=== PATIENT | female | born 1985 | race African-American/Black ===

== ENCOUNTER 2023-10-05 10:59 | Emergency (ER) | payer SELFPAY ==
[2023-10-05 11:07] VITALS: BP 116/76; PULSE 110; RESP 20; TEMP 36.7; O2SAT 100
[2023-10-05 13:23] LABS: Strep Group A RT-PCR DETECTED (Negative)
--- NOTE | 2023-10-05 13:47 | ED.GENADULT ---
HPI - General Adult General Chief complaint: Upper Respiratory Infection Stated complaint: sore throat Time Seen by Provider: 10/05/23 12:54 History of Present Illness HPI narrative: 37-year-old female present to the emergency department for evaluation of sore throat that is been ongoing for the last few days. Patient reports he has been having increased difficulty with swallowing. Patient has been taking [id number] medications for pain control. Patient states she has been unable to do the warm salt water gargles. Related Data Allergies Allergy/AdvReac Type Severity Reaction Status Date / Time No Known Allergies Allergy Verified 10/05/23 12:13 Review of Systems Review of Systems: All systems reviewed & are unremarkable except as noted in HPI and below Exam Narrative: APPEARANCE: Well appearing, no pain, no distress, well-nourished. HEAD: normocephalic, atraumatic. EYES: PERRLA/EOMI, conjunctivae clear. NOSE: Normal no drainage EARS:TMS clear with good light reflex. THROAT: Enlarged tonsils with exudate, tonsils without touching, no uvular deviation and no posterior pharynx swelling NECK: Supple. No adenopathy, no masses. RESPIRATORY: Airway patent, respirations nonlabored. Clear to auscultation bilaterally, no rales, rhonchi, wheezing. CARDIOVASCULAR: Regular rate and rhythm without murmurs rubs or gallops. ABDOMINAL: Soft, nontender, nondistended, normal bowel sounds MUSCULOSKELETAL: Moves all extremities. Strength/ROM intact, No edema, No calf tenderness. NEURO: Alert. Cranial nerves II through XII intact. grossly intact Course Course Emergency Course: Vital Signs Vital signs: Vital Signs Temperature 98.0 F 10/05/23 11:07 Pulse Rate 110 H 10/05/23 11:07 Respiratory Rate 10/05/23 11:07 Blood Pressure 116/76 10/05/23 11:07 Pulse Oximetry 100 10/05/23 11:07 Oxygen Delivery Room Air 10/05/23 11:07 Temperature 98.0 F 10/05/23 11:07 Pulse Rate 110 H 10/05/23 11:07 Respiratory Rate 20 10/05/23 11:07 Blood Pressure 116/76 10/05/23 11:07 Pulse Oximetry 100 10/05/23 11:07 Oxygen Delivery Room Air 10/05/23 11:07 Medical Decision Making [facility] Narrative Medical decision making narrative: 29-year-old female present to the emergency department for evaluation for sore throat. Patient did test positive for group a strep and was started on Augmentin the emergency department. Due to patient's extensive swelling she was also treated with a single dose of IM dexamethasone. Patient was encouraged to have close follow-up with her primary care physician. Differential Diagnosis Differential Diagnosis: peritonsillar abscess, posterior pharyngeal abscess, strep throat, viral etiology Vital Signs Vital Signs: Vital Signs Temperature 98.0 F 10/05/23 11:07 Pulse Rate 110 H 10/05/23 11:07 Respiratory Rate 20 10/05/23 11:07 Blood Pressure 116/76 10/05/23 11:07 Pulse Oximetry 100 10/05/23 11:07 Oxygen Delivery Room Air 10/05/23 11:07 Temperature 98.0 F 10/05/23 11:07 Pulse Rate 110 H 10/05/23 11:07 Respiratory Rate 20 10/05/23 11:07 Blood Pressure 116/76 10/05/23 11:07 Pulse Oximetry 100 10/05/23 11:07 Oxygen Delivery Room Air 10/05/23 11:07 Lab Data Lab results reviewed: Yes I reviewed the patient's lab results. Labs: Lab Results 10/05/23 Range/Units 12:45 Group A Strep (PCR) Detected A (Negative) Discharge Plan Discharge Clinical Impression: Strep throat Patient Disposition: Home, Self-Care Condition: Stable Instructions: Antibiotic Form, Strep Throat (ED) Additional Instructions: Tylenol and ibuprofen for symptom control. Antibiotic as directed until completed. Follow self diet. Avoid alcohol. Have close follow-up with your primary care physician. Prescriptions: New amoxicillin-pot clavulanate 875-125 mg tablet 1 tablet PO Q12H 7 Days Qty: 14 0RF Follow-up/Ref
[2023-10-05] MEDS: dexAMETHasone SOD PHOS INJ 10 MG/ML 1 ML VIAL IM (14:01)
[2023-10-05] MEDS: AMOXICILLIN/CLAVULANATE K 875-125 MG TAB 1 TABLET PO (14:01)
== END 2023-10-05 14:06 | disposition home or self-care (01) ==
PROVIDERS: Physician Assistant; Emergency Provider Emergency Medicine
DX: J02.0 Streptococcal pharyngitis (principal)
CPT/HCPCS: 87651; 96372; 99283; A9270; J1100